=== PATIENT | male | born 1945 | race Caucasian/White ===

== ENCOUNTER 2023-01-27 13:08 | Emergency (ER) | payer OTHER ==
[~2023-01-27] VITALS: Ht 177.8 cm; Wt 63.5 kg
[2023-01-27 13:41] VITALS: BP_SYST 118
--- NOTE | 2023-01-27 13:51 | NUR ---
REGISTRATION INFORMED ER STAFF THAT PT LEFT. DR PALENCIA INFORMED
== END 2023-01-27 13:51 | disposition left against medical advice (07) ==
LOC: SED 13:08
DX: M79.662 Pain in left lower leg (principal); Z53.21 Procedure and treatment not carried out due to patient leaving prior to being seen by health care provider
CPT/HCPCS: 99281